=== PATIENT | male | born 1965 | race Caucasian/White ===

== ENCOUNTER 2020-05-01 12:44 | Outpatient (CLI) | payer BC, SELFPAY ==
--- NOTE | 2020-05-01 12:50 | XRR_ITS ---
PROCEDURE INFORMATION: Exam: XR Abdomen, 3 or More Views Exam date and time: 05/01/2020 12:51 PM Age: 54 years old Clinical indication: Other: UTI; Additional info: Uti/nephrolithiasis TECHNIQUE: Imaging protocol: XR of the abdomen. Views: 3 or more views. COMPARISON: No relevant prior studies available. FINDINGS: Gastrointestinal tract: Bowel gas pattern is unremarkable. There are caliceal stones present in the left kidney in the mid and lower pole measuring 3 mm and 6 mm respectively Intraperitoneal space: Normal. No free air. 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 Negative for acute GI abnormality. 2. Caliceal stones left kidney
== END 2020-05-01 12:45 | disposition home or self-care (01) ==
LOC: RAD 12:48
PROVIDERS: PCP Family Medicine; Visit Provider Family Medicine
DX: N20.0 Calculus of kidney (principal); N39.0 Urinary tract infection, site not specified
CPT/HCPCS: 74018

== ENCOUNTER 2020-05-08 14:23 | Outpatient (CLI) | payer BC, SELFPAY ==
--- NOTE | 2020-05-08 14:00 | XRR_ITS ---
PROCEDURE INFORMATION: Exam: XR Abdomen, 1 View Exam date and time: 05/08/2020 2:45 PM Age: 54 years old Clinical indication: Condition or disease; Other: Urolithiasis TECHNIQUE: Imaging protocol: XR of the abdomen. Views: Frontal supine view of the abdomen. 1 View. COMPARISON: CR XR KUB [id number] 05/01/2020 1:01 PM FINDINGS: Gastrointestinal tract: Normal. No bowel dilation. Organs: Two or 3 small left renal stones, unchanged. The largest mid and lower pole stones measure approximately 5 mm. Bones/joints: Unremarkable. XR/XR KUB [id number] IMPRESSION: Left renal stones, unchanged.
== END 2020-05-08 14:24 | disposition home or self-care (01) ==
PROVIDERS: PCP Family Medicine; Visit Provider Urology
DX: N20.9 Urinary calculus, unspecified (principal); N20.0 Calculus of kidney
CPT/HCPCS: 74018; 81001

== ENCOUNTER 2020-05-15 13:37 | Outpatient (CLI) | payer BC, SELFPAY ==
--- NOTE | 2020-05-15 13:51 | US_ITS ---
WS: [id number] RENAL ULTRASOUND Urinary bladder ultrasound HISTORY: HEMATURIA/UTI/NEPHROLITHIASIS COMPARISON: 06/19/2009 TECHNIQUE: 2-D and color Doppler imaging of the kidney submitted. Right kidney: 12.2 cm x 5.1 cm x 5.6 cm. Normal echogenicity with no hydronephrosis or mass. Left kidney: 11.2 cm x 5.5 cm x 5.1 cm. Normal echogenicity with no hydronephrosis or mass. Aorta: Normal. Urinary Bladder: Normally distended urinary bladder. Prevoid volume: 179 cubic cm. Post void volume: No residual. US/US renal BI with bladder IMPRESSION: 1. No renal mass or obstruction. 2. No significant post void residual.
== END 2020-05-15 13:38 | disposition home or self-care (01) ==
PROVIDERS: PCP Family Medicine; Visit Provider Family Medicine
DX: R31.9 Hematuria, unspecified (principal); N39.0 Urinary tract infection, site not specified; N20.0 Calculus of kidney
CPT/HCPCS: 76770; 76857

== ENCOUNTER → 2022-04-05 11:20 | Outpatient (BNVA) | payer BC, SELFPAY | PROVIDERS: PCP Family Medicine; Visit Provider Family Medicine | DX: Z01.89 Encounter for other specified special examinations (principal) | CPT/HCPCS: 87635; 87804 ==

== ENCOUNTER → 2022-10-02 09:22 | Outpatient (BNVA) | payer BC, SELFPAY | PROVIDERS: PCP Family Medicine; Visit Provider Family Medicine | DX: E11.9 Type 2 diabetes mellitus without complications (principal); Z13.220 Encounter for screening for lipoid disorders; Z51.81 Encounter for therapeutic drug level monitoring; E53.8 Deficiency of other specified B group vitamins; N20.9 Urinary calculus, unspecified; I10 Essential (primary) hypertension | CPT/HCPCS: 80053; 80061; 82607; 83036; 85025 ==

== ENCOUNTER → 2023-04-29 10:05 | Outpatient (BNVA) | payer BC, SELFPAY | PROVIDERS: PCP Family Medicine; Visit Provider Family Medicine | DX: Z51.81 Encounter for therapeutic drug level monitoring (principal); E11.9 Type 2 diabetes mellitus without complications; R35.0 Frequency of micturition; I10 Essential (primary) hypertension | CPT/HCPCS: 80053; 83036; 84153; 85025 ==

== ENCOUNTER 2023-09-08 11:52 | Outpatient (CLI) | payer BC, SELFPAY ==
--- NOTE | 2023-09-08 12:07 | XRR_ITS ---
PROCEDURE INFORMATION: Exam: XR Left Ankle Exam date and time: 09/08/2023 12:24 PM Age: 58 years old Clinical indication: Pain; Patient HX: Left ankle has been swollen since (09/04/23); Additional info: Left lateral ankle pain TECHNIQUE: Imaging protocol: Radiologic exam of the left ankle. Views: 3 or more views. COMPARISON: CR XR foot LT min 3V* [id number] 01/24/2017 12:12 PM FINDINGS: Bones/joints: Small plantar and Achilles spur. No fracture or bony destructive lesion. Joint spaces are preserved. Soft tissues: Soft tissue swelling. XR/XR ankle LT min 3V* [id number] IMPRESSION: No acute findings.
[2023-09-08 14:17] LABS: Uric Acid 5.9 mg/dL (3.4-7.0)
== END 2023-09-08 11:53 | disposition home or self-care (01) ==
PROVIDERS: PCP Family Medicine; Visit Provider Clinical Nurse Specialist Adult Health
DX: M25.572 Pain in left ankle and joints of left foot (principal)
CPT/HCPCS: 36415; 73610; 84550

== ENCOUNTER → 2024-01-15 08:44 | Outpatient (BNVA) | payer BC, SELFPAY | PROVIDERS: PCP Family Medicine; Visit Provider Clinical Nurse Specialist Adult Health | DX: J06.9 Acute upper respiratory infection, unspecified (principal) | CPT/HCPCS: 87400; 87426 ==

== ENCOUNTER 2024-07-02 10:23 | Outpatient (CLI) | payer BC, SELFPAY ==
--- NOTE | 2024-07-02 10:35 | XR_ITS ---
WS: [id number] Right shoulder, 3 views, 07/02/2024 Clinical Data: Right shoulder pain Comparison: None. Findings: No fractures or dislocations are seen. The AC joint is normal. The adjacent right clavicle, right sca pula and ribs are normal. The soft tissues are unremarkable. XR/XR shoulder RT min 2V* [id number] Impression: Negative right shoulder.
== END 2024-07-02 10:24 | disposition home or self-care (01) ==
LOC: RAD 10:24
PROVIDERS: PCP Family Medicine; Visit Provider Family Medicine
DX: M25.511 Pain in right shoulder (principal); Z51.81 Encounter for therapeutic drug level monitoring; E11.9 Type 2 diabetes mellitus without complications; Z13.220 Encounter for screening for lipoid disorders; E53.8 Deficiency of other specified B group vitamins
CPT/HCPCS: 73030; 80053; 80061; 82607; 83036; 85025

== ENCOUNTER → 2024-10-12 12:55 | Outpatient (BNVA) | payer BC, SELFPAY | PROVIDERS: PCP Family Medicine; Visit Provider Family Medicine | DX: J02.9 Acute pharyngitis, unspecified (principal) | CPT/HCPCS: 87880 ==

== ENCOUNTER → 2024-10-19 14:18 | Outpatient (BNVA) | payer BC, SELFPAY | PROVIDERS: PCP Family Medicine; Visit Provider Family Medicine | DX: E11.9 Type 2 diabetes mellitus without complications (principal); Z51.81 Encounter for therapeutic drug level monitoring; R35.0 Frequency of micturition; E55.9 Vitamin D deficiency, unspecified; M25.511 Pain in right shoulder | CPT/HCPCS: 80053; 82306; 83036; 84153; 85025 ==

== ENCOUNTER 2024-11-01 08:39 | Outpatient (RCR) | payer BC, SELFPAY | END 2024-11-09 23:59 | disposition home or self-care (01) | LOC: SPT 08:39 | PROVIDERS: PCP Family Medicine; Visit Provider Family Medicine | DX: M25.511 Pain in right shoulder (principal) | CPT/HCPCS: 97161 ==

== ENCOUNTER → 2025-03-09 09:50 | Outpatient (BNVA) | payer MEDICAID, SELFPAY | PROVIDERS: PCP Family Medicine; Visit Provider Family Medicine | DX: E55.9 Vitamin D deficiency, unspecified (principal); Z51.81 Encounter for therapeutic drug level monitoring; E11.9 Type 2 diabetes mellitus without complications; E53.8 Deficiency of other specified B group vitamins | CPT/HCPCS: 80053; 82306; 82607; 83036; 85025 ==

== ENCOUNTER 2025-05-04 12:12 | Outpatient (CLI) | payer MEDICAID, SELFPAY | END 2025-05-04 12:13 | disposition home or self-care (01) | LOC: SLEEP 12:15 | PROVIDERS: PCP Family Medicine; Visit Provider Internal Medicine Pulmonary Disease | DX: G47.33 Obstructive sleep apnea (adult) (pediatric) (principal); G47.36 Sleep related hypoventilation in conditions classified elsewhere | CPT/HCPCS: G0399 ==

== ENCOUNTER → 2025-07-12 12:13 | Outpatient (BNVA) | payer MEDICAID, SELFPAY | PROVIDERS: PCP Family Medicine; Visit Provider Family Medicine | DX: E55.9 Vitamin D deficiency, unspecified (principal); Z51.81 Encounter for therapeutic drug level monitoring; Z13.6 Encounter for screening for cardiovascular disorders; E53.8 Deficiency of other specified B group vitamins; E11.9 Type 2 diabetes mellitus without complications | CPT/HCPCS: 80053; 80061; 82306; 82607; 83036; 85025 ==

== ENCOUNTER 2025-07-18 14:26 | Outpatient (CLI) | payer MEDICAID, SELFPAY ==
--- NOTE | 2025-07-18 14:34 | XR_ITS ---
WS: [id number] Lumbar spine, 3 views, 07/18/2025 Clinical Data: Low back pain Comparison: Lumbar spine, 12/25/2021 Findings: No compression fractures or subluxation is seen. There is degenerative disc narrowing at T12-L1 and L5-S1. There are osteophytes at all levels with bridging osteophytes at T12-L3. The transverse processes and SI joints are normal. XR/XR lumbar spine 2-3V* [id number] Impression: 1. Osteoarthritis L1-L5. 2. Degenerative disc narrowing at T12-L1 and L5-S1.
== END 2025-07-18 14:27 | disposition home or self-care (01) ==
LOC: RAD 14:28
PROVIDERS: PCP Family Medicine; Visit Provider Family Medicine
DX: M54.50 Low back pain, unspecified (principal); M47.816 Spondylosis without myelopathy or radiculopathy, lumbar region
CPT/HCPCS: 72100

== ENCOUNTER 2025-08-10 06:30 | Outpatient (RCR) | payer MEDICAID, SELFPAY | END 2025-09-09 23:59 | disposition home or self-care (01) | LOC: SPT 06:30 | PROVIDERS: PCP Family Medicine; Visit Provider Anesthesiology Pain Medicine | DX: M54.50 Low back pain, unspecified (principal); G89.29 Other chronic pain | CPT/HCPCS: 97110; 97161; 97530 ==

== ENCOUNTER 2025-09-10 05:00 | Outpatient (RCR) | payer MEDICAID, SELFPAY | END 2025-10-09 23:59 | disposition home or self-care (01) | LOC: SPT 05:00 | PROVIDERS: PCP Family Medicine; Visit Provider Anesthesiology Pain Medicine | DX: M54.50 Low back pain, unspecified (principal); G89.29 Other chronic pain | CPT/HCPCS: 97110 ==